=== PATIENT | male | born 2000 | race Two or more races ===

== ENCOUNTER → 2024-09-09 | Outpatient (CLI) | payer MEDICAID, SELFPAY ==
--- NOTE | 2024-09-09 | XR_ITS ---
Examination: Toes, left foot first digit 3 views Technique: Toes AP oblique lateral 3 views first digit Date and time of exam: September 01, 2024 1316 hours INDICATIONS: Injury to the foot last week with first digit pain. FINDINGS: No acute fracture. No dislocation No foreign body IMPRESSION: No acute fracture
== END | disposition home or self-care (01) ==
PROVIDERS: PCP Physician Assistant; Referring Provider Physician Assistant; Visit Provider Physician Assistant
DX: S99.922A Unspecified injury of left foot, initial encounter (principal); X58.XXXA Exposure to other specified factors, initial encounter
CPT/HCPCS: 73660